=== PATIENT | male | born 1985 | race Caucasian/White ===

== ENCOUNTER 2018-07-07 12:29 | Outpatient (CLI) | payer BC ==
--- NOTE | 2018-07-07 13:39 | RAD ---
LUMBAR SPINE TWO VIEWS: History: Low back pain. Comparison: None. FINDINGS: There are five non-rib bearing lumbar type vertebrae. Mild narrowing of L5-S1 disc space. No signific ant listhesis. No acute fracture or malalignment. IMPRESSION: Low grade narrowing of the L5-S1 disc space. POS: [facility]
== END 2018-07-07 12:30 | disposition home or self-care (01) ==
LOC: BICRAD 12:29
PROVIDERS: ATTEND Family Medicine
DX: M54.5 Low back pain (principal); M48.07 Spinal stenosis, lumbosacral region
CPT/HCPCS: 72100